=== PATIENT | female | born 1995 | race Caucasian/White ===

== ENCOUNTER → 2023-03-17 | Outpatient (CLI) | payer OTHER ==
--- NOTE | 2023-03-17 17:12 | Diagnostic Imaging Report ---
EXAMINATION: Chest 1 view. HISTORY: Tuberculosis. COMPARISON: None available. FINDINGS: The lungs are clear without edema or pneumonia. No pleural effusion or pneumothorax. Heart size is normal. No radiographic evidence of active tuberculosis. IMPRESSION: Clear lungs. Dictated by: Dictated on workstation # [id number]
== END ==
LOC: RAD 15:47
DX: A15.9 Respiratory tuberculosis unspecified (principal)
CPT/HCPCS: 71045